=== PATIENT | male | born 1960 | race Caucasian/White ===

== ENCOUNTER 2017-07-12 15:08 | Emergency (ER) | payer OTHER, MEDICARE ==
[~2017-07-12] VITALS: Ht 185.4 cm; Wt 81.6 kg
--- NOTE | 2017-07-12 15:39 | Emergency Room Report ---
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 N Clinical Suspician of Infection? N Mental Status: 1 - Regular (Normal Baseline) Sepsis Risk:Low Sepsis Risk Have you (or family members/close friends) recently traveled outside the [place]? N If Yes, where/when: Have you had exposure to infectious disease within the past month? N TB? Other? Specify: Vivian table fell on to right third digit about five hours ago, has laceration that abuts his nail with some ecchymosis, and elevation of nail medially. No weakness or numbness. TDaP updated today. ALLERGIES Coded Allergies: No Known Allergies (05/11/17) Home Medications Active Scripts Tramadol Hcl (Ultram 50MG) 50 MG PO Q8HP PRN PAIN #6 TAB Prov: 05/11/17 Cyclobenzaprine Hcl (Flexeril) 10 MG PO TID PRN pain #30 TAB Prov: 02/13/16 INSULIN GLARGINE (Lantus 3ML Solostar Pen) 8 UNITS SC QHS #3 ML Ref 3 Prov: 08/10/13 Insulin (Insulin Human Regular 10ML) 3 UNITS SC AC #10 ML Ref 3 Prov: 08/10/13 Rifaximin (Xifaxan) 550 MG PO BID #60 TAB Ref 3 Prov: 08/10/13 Lactulose (Lactulose 20GM/30ML UD) 30 ML PO QID 30 Days Ref 3 Prov: 08/10/13 Reported Medications No Home Medications (NO HOME MEDICATIONS) 1 X * ONCE Gabapentin Enacarbil (Horizant) 900 MG PO DAILY METFORMIN HCL (Metformin) 1,000 MG PO BID History Medical History General Angina: No SD: No Hypertension? No Hyperlipidemia? No CHF? No COPD? No Asthma? No Hernia? Yes CVA? No Seizures? No Diabetes? No End Stage Renal Disease? No UTI? No Stones? No GB Disease: No Hepatitis? No Cataracts? No Glaucoma? No MRSA? No TB? No Cancer? No More? Yes Additional hx: END STAGE LIVER DISEASE Immunization Hx DT/Tetanus > 10 Years Ago Flu 08/10/13 Pneumonia 08/10/13 Surgical Hx Previous Surgery?Y L ANKLE BACK-DISC Family History Family Hx Diabetes No CAD No Hypertension No Hyperlipidemia No Cancer Yes TB No Social History Smoking Hx Smoker: Current Every Day Smoker Tobacco: Yes Type Cigarettes Packs/day 1 1/2 - 2 Packs Alcohol Alcohol: Yes Review of Systems All Other Systems Reviewed and Negative Musculoskeletal see HPI Skin see HPI Psychiatric/Neurological denies no symptoms reported Physical Exam Vital Signs Vital Signs Date Time Temp Pulse Resp B/P Pulse O2 O2 Flow FiO2 Ox Delivery Rate 07/12 1625 16 07/12 1608 98 16 112/80 98 07/12 1520 98.3 86 14 132/70 98 General Appearance normal appearance, WD/WN, no apparent distress Eye Exam - bilateral eye normal exam Respiratory Status No: respiratory distress. Cardiovascular no peripheral edema Extremities 2.0 cm jagged laceration to dorsum of right middle digit, no tendon or bone immediately visible; no debris or FB; has elevation of nail bed with drainage from it and distal ecchymosis c/w crush injury. Has good ROM with each joint held in isolation. Sensate throughout. Strong radial pulse. Neurologic alert, normal exam, no motor/sensory deficits, oriented x 3 Glascow Coma Scale Glascow Coma Scale Response Value EYE response: 4 Spontaneously 4 MOTOR response: 6 OBEYS 6 VERBAL response: 5 Oriented & Converses 5 Total 15 Skin intact (see above), laceration(s) (see above) Medical Decision Making LABS/Meds/Orders Pt receiving controlled substance in ED? No Results/Orders Current Medication Orders Sig/Abdi Start time Last Medication Dose Route Stop Time Status Admin Multi-Ingredient 0 .STK-MED ONE 07/12 1635 DC Ointment TP Ketorolac 60 MG ONCE ONE 07/12 1630 DC 07/12 Tromethamine IM 07/12 1631 1625 Lidocaine HCl 0 .STK-MED ONE 07/12 1620 DC .ROUTE Ketorolac 0 .STK-MED ONE 07/12 1619 DC Tromethamine .ROUTE Diphtheria/Pertussis/ 0 .STK-MED ONE 07/12 1532 DC Tetanus Vacc IM Diphtheria/Pertussis/ 0.5 ML ONCE ONE 07/12 1530 DC 07/12 Tetanus Vacc IM 07/12 1531 1535 Orders Procedure Date/time Status HAND-RT 3 VIEWS 07/12 1525 Active XRAY/CT/US XRAY/CT/US XR interpretation by reviewed by me Xray Results normal/NAD (oblique fx distal 3rd phalanx) Consult MD Physician Consult Consult/PCP Dr. Lyn: close and send to clinic on Keflex; [phone] Time Called 1613 Reason Orthopedic eval/care Comments Hand call paged for consult. Has open oblique fracture of distal middle phalanx. Procedures Laceration/Wound Repair Laceration/Wound Repair Risks/benefits discussed with pt/guardian? Yes Tetanus status up to date (updated in ED today) Wound Location finger(s) Wound Length (cm) 2.5 Wound's Depth, Shape sucutaneous tissue, irregular Wound Explored no FB identified (dirty nail scrubbed clean) Risk of retained FB explained to pt/guardian? Yes (no bone or tendon seen) Irrigated w/ Saline (ccs) 50 Wound Prep Hibiclens Anesthesia 1% Lidocaine Volume Anesthetic (ccs) 2 Wound Debrided none Wound Repaired With sutures Suture Size/Type 4:0, Ethilon Layer Closure No Total Number Sutures 4 Sterile Dressing Applied Yes Splint Applied Yes Type of Splint Applied foam aluminium finger splint applied by staff; n/v intact; advised risk of losing nail as tuft exposed; risk of nail deformity. Departure Departure Time of Disposition 1656 Disposition DC Home or Self Care(routine) Clinical Impression Primary Impression: Fracture metacarpal-open Qualifiers: Encounter type: initial encounter Metacarpal bone: third Metacarpal location: shaft Fracture alignment: displaced Laterality: right Qualified Code: S62.322B - Displaced fracture of shaft of third metacarpal bone, right hand, initial encounter for open fracture Condition STABLE Patient Instructions DI for a Hand Fracture, Laceration Repair Additional Instructions Wash twice daily, watch for infection, Rx Naproxen (or take Ibuprofen); Rx Keflex; follow up hand call orthopedics [phone] bring your disc with your xray on it. Sutures out in one week but you need a wound check in one to two days. Discharge Counseling Counseled pt/family regarding diagnosis, test results, medications/RX, home care, follow up needs Prescriptions Current Visit Scripts Cephalexin (Keflex 500MG) 500 MG PO Q6 #40 CAPSULE NAPROXEN (NAPROXEN 500MG TAB) 500 MG PO BID #20 TAB ED Critical Care Critical Care No at 1701
[2017-07-12 17:26] VITALS: BP 110/75
--- NOTE | 2017-07-12 17:47 | RADIOLOGY REPORT PS360 ---
HAND-RT 3 VIEWS COMPARISON: None HISTORY: Crush injury to third finger TECHNIQUE: AP lateral and oblique views FINDINGS: There is a surgical dressing about the tip of the middle finger. There is an oblique fracture through the distal phalanx and terminal tuft with one or 2 mm distraction along the fracture line. There is mild diffuse soft tissue swelling about the distal phalanx. All remaining phalanges appear intact and the carpal bones and metacarpals appear intact. There are no foreign bodies. IMPRESSION: Crush injury with fracture involving the terminal tuft and a portion of the distal phalanx middle finger.
--- OUTSIDE RECORDS SUMMARY | 2017-07-23 19:07 | External Medical Summary Rpt ---
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 Name Role Phone Jerome Ovalle MD, Unavailable Unavailable Jerome Lomeli MD, Unavailable Unavailable Jose Lomeli MD Purpose Continuity of Care Document - 08-06-2013 through 2016 Problems Code Diagnosis DOS Provider Status 79999066 Alcohol Rei abuse [facility] [id number] Diabetes Rei mellitus, [facility] onset, with hyperosmola r coma 571.2 Alcoholic Rei cirrhosis [facility] Allergies, Adverse Reactions, Alerts Type Allergy to substance Adverse Reaction to Substance Substance Reaction Severity NO KNOWN ALLERGIES Unknown Unknown Medications Na ND Rx Da Fi Fi Am Da Di Ph RX Ph St me C No te ll ll ou ys ag ar # ys at rm s nt no ma ic us Or Da si cy ia de te s n re d [place] 00 10 0 No lo 06 -2 pe 90 9- Lo ri 11 20 ng do 30 13 er l [address] ti at ve e 5M G/ Ml Vi a WV 10 0 No SC -2 EL 9- Lo LA 20 ng NE 13 er OU S Ac ti ve PN 00 10 0 No EU 00 -2 MO 64 9- Lo VA 94 20 ng X 30 13 er 23 0 Ac ti AL ve IN 49 10 0 No FL 28 -2 UE 10 9- Lo NZ 39 20 ng A 21 13 er 5 RU Ac S ti VA ve CC IN E 0. 5M L LO 00 10 0 No RA 64 -2 ZE 16 8- Lo PA 04 20 ng M 82 13 er 2 5 MG Ac /M ti L ve AL [place] 00 10 0 No lo 06 -2 pe 90 8- Lo ri 11 20 ng do 30 13 er l [address] ti at ve e 5M G/ Ml Vi a LA 00 10 1 No NT 08 -2 US 82 8- Lo 21 20 ng SO [address] Ac AR ti ve 10 0 UN IT /M L HU 00 10 1 No MA 00 -2 LO 27 8- Lo G 51 20 ng 10 01 13 er 0 7 UN Ac IT ti S/ ve ML AL FS 10 1 No -2 BL 8- Lo OO 20 ng D 13 er MARSH GA Ac R ti ve Lo 63 10 1 No ra 73 -2 ze 90 8- Lo pa 15 20 ng m 51 13 er 1M 0 G Ac Ta ti bl ve et PO 00 10 2 No TA 40 -2 SS 99 7- Lo IU 25 20 ng M 73 13 er CL 9 Ac 20 ti ve ME Q- 0. 45 % NA CL ROSAS 51 10 2 No LO 07 -2 PE 90 7- Lo RI 73 20 ng DO 42 13 er L 0 1 Ac MG ti ve TA BL ET LO 00 10 2 No VE 07 -2 NO 50 7- Lo X 62 20 ng 40 04 13 er 1 MG Ac /0 ti .4 ve ML SY RI NG E NI 00 10 2 No CO 06 -2 TI 75 7- Lo NE 12 20 ng 61 13 er 21 4 Ac MG ti /2 ve 4H R PA TC H LA [address] 12 -2 UL 14 7- Lo OS 57 20 ng E 73 13 er 20 0 Ac GM ti /3 ve 0 ML SO SEAN TI ON FS 10 0 No -2 BL 6- Lo OO 20 ng D 13 er MARSH GA Ac R ti ve HU 00 10 0 No MA 00 -2 LO 27 6- Lo G 51 20 ng 10 01 13 er 0 7 UN Ac IT ti S/ ve ML AL RA 00 10 0 No D- 27 -2 IS 01 6- Lo OV 31 20 ng UE 63 13 er -3 5A 70 Ac ; ti 10 ve 0M L LO 00 10 3 No RA 64 -2 ZE 16 6- Lo PA 04 20 ng M 82 13 er 2 5 MG Ac /M ti L ve AL PO 00 10 1 No TA 40 -2 SS 99 6- Lo IU 25 20 ng M 73 13 er CL 9 Ac 20 ti ve ME Q- 0. 45 % NA CL SO 00 10 1 No DI 40 -2 UM 97 6- Lo 98 20 ng CH 50 13 er LO 9 RI Ac DE ti ve 0. 45 % SO LN SO 00 10 0 No DI 40 -2 UM 97 5- Lo 98 20 ng CH 30 13 er LO 9 RI Ac DE ti ve 0. 9% SO SEAN TI ON NO 00 10 1 No VO 16 -2 LI 91 5- Lo N 83 20 ng R 31 13 er 10 1 0 Ac UN ti IT ve S/ ML AL PO 00 10 1 No TA 40 -2 SS 99 5- Lo IU 25 20 ng M 73 13 er CL 9 Ac 20 ti ve ME Q- 0. 45 % NA CL ON 00 10 1 No DA 64 -2 NS 16 5- Lo ET 08 20 ng RO 02 13 er N 5 HC Ac L ti 4 ve MG /2 ML AL FS 10 1 No -2 BL 5- Lo OO 20 ng D 13 er MARSH GA Ac R ti ve NI 00 10 1 No CO 06 -2 TI 75 5- Lo NE 12 20 ng 61 13 er 21 4 Ac MG ti /2 ve 4H R PA TC H LO 00 10 1 No VE 07 -2 NO 50 5- Lo X 62 20 ng 40 04 13 er 1 MG Ac /0 ti .4 ve ML SY RI NG E LO 00 10 1 No RA 64 -2 ZE 16 5- Lo PA 04 20 ng M 82 13 er 2 5 MG Ac /M ti L ve AL Vital Signs 08-10-2013 16:48 Name Value Interpretat Reference Comment ion Range Body 98.2 [degF] Temperature BP 76 mm[Hg] Diastolic BP Systolic 105 mm[Hg] Heart 84 /min Rate/Pulse Respiratory 18 /min Rate 08-10-2013 15:50 Name Value Interpretat Reference Comment ion Range O2% 97 % 08-06-2013 12:00 Name Value Interpretat Reference Comment ion Range Height 185.42 cm Weight 64.212 kg Measured 08-06-2013 09:26 Name Value Interpretat Reference Comment ion Range Body 97.8 [degF] Temperature BP 63 mm[Hg] Diastolic BP Systolic 117 mm[Hg] Heart 83 /min Rate/Pulse O2% 91 % Respiratory 20 /min Rate Weight 4 [oz_av] Measured Results Labs Lab Lab Date Result Refere Interp Status Commen Order Detail nces retati t Range on Glucose BldC [facility]com[facility] (08-10-2013 16:22) Glucose 133 70-110 complet BldC 013 mg/dl ed Glucomt 16:22 r-mCnc Glucose BldC Glucomtr-[facility] (08-10-2013 10:59) Glucose 142 70-110 complet BldC 013 mg/dl ed Glucomt 10:59 r-[facility] COMPREHENSIVE METABOLIC PANEL (08-10-2013 06:40) Glucose 177 74-106 complet 013 mg/dL ed Bld-mCn 06:40 c BUN 6 mg/dL 7-18 complet Bld-mCn 013 ed c 06:40 Creat 0.8 0.8-1.3 complet SerPl-m 013 mg/dL ed Cnc 06:40 ESTIMAT 98 50-200 complet ED 013 ML/MIN ed CREATIN 06:40 INE CLEARAN CE GFR 101 Greater complet (ESTIMA 013 ML/MIN than ed AMANDA) 06:40 60 Sodium 147 136-145 complet SerPl-s 013 mmoL/L ed Cnc 06:40 Potassi 3.7 3.5-5.1 complet um 013 mmoL/L ed SerPl-s 06:40 Cnc Chlorid 115 98-107 complet e 013 mmoL/L ed SerPl-s 06:40 Cnc CO2 23 21.0-32 complet SerPl-s 013 mmoL/L .0 ed Cnc 06:40 Calcium 8.6 8.5-10. complet 013 mg/dL 1 ed SerPl-m 06:40 Cnc Prot 5.1 6.4-8.2 complet SerPl-m 013 gm/dL ed Cnc 06:40 Albumin 2.2 3.4-5.0 complet 013 gm/dL ed SerPl-m 06:40 Cnc Globuli 2.9 1.3-3.2 complet n 013 gm/dL ed Ser-mCn 06:40 c Albumin 0.8 UNK 1.1-1.8 complet /Glob 013 ed SerPl-m 06:40 Rto Bilirub 0.8 0.2-1.0 complet 013 mg/dL ed SerPl-m 06:40 Cnc AST 143 U/L 15-37 complet SerPl-c 013 ed Cnc 06:40 ALT 10-29-2 122 U/L 30-65 complet SerPl-c 013 ed Cnc 06:40 ALP 08-10-2 394 U/L 50-136 complet SerPl-c 013 ed Cnc 06:40 CBC with AUTO DIFF (08-10-2013 06:40) WBC # 10-29-2 3.6 4.8-10. complet Bld 013 K/MM3 8 ed Auto 06:40 RBC # 29-2 3.96 4.6-6.2 complet Bld 013 M/mm3 ed Auto 06:40 Hgb 08-10-2 13.6 14.1-18 complet Bld-mCn 013 g/dL .0 ed c 06:40 Hct Fr 08-10-2 42.9 % 42.0-52 complet Bld 013 .0 ed 06:40 MCV RBC 08-10-2 108.2 82.2-97 complet 013 fl .8 ed 06:40 MCH RBC 08-10-2 34.3 pg 27-31.2 complet Qn 013 ed Auto 06:40 MEAN 08-10-2 31.7 31.8-35 complet CORPUSC 013 g/dl .4 ed ULAR 06:40 HGB CONC RDW RBC 08-10-2 15.5 % 11.5-17 complet Auto 013 .5 ed 06:40 Platele 08-10-2 44 142-424 Low complet t Bld 013 K/mm3 alert ed Ql 06:40 Manual MEAN 08-10-2 10.3 fl 7.4-10. complet PLATELE 013 4 ed T 06:40 VOLUME Granulo 08-10-2 67.4 % 37.0-80 complet cytes 013 .0 ed Fr Bld 06:40 Auto LYMPH % 08-10-2 27.6 % 10-50 complet 013 ed 06:40 Monocyt 10--2 3.8 % 1.7-9.3 complet es Fr 013 ed Bld 06:40 Auto Eosinop --2 1.0 % 0.1-12. complet hil Fr 013 0 ed Bld 06:40 Auto Basophi 08-10-2 0.2 % 0.1-2.0 complet ls Fr 013 ed Bld 06:40 Auto Granulo --2 2.4 1.3-8.0 complet cytes # 013 K/mm3 ed Bld 06:40 Auto Lymphoc 1.0 0.7-4.5 complet ytes Fr 013 K/mm3 ed Bld 06:40 Auto Monocyt 0.1 0.1-1.0 complet es # 013 K/mm3 ed Bld 06:40 Auto Eosinop 0.0 0.0-0.4 complet hil # 013 K/mm3 ed Bld 06:40 Auto Basophi 0.0 0-0.2 complet ls # 013 K/MM3 ed Bld 06:40 Auto Glucose BldC [facility] (08-10-2013 06:37) Glucose 169 70-110 complet BldC 013 mg/dl ed Glucomt 06:37 r-nc Glucose BldC [facility] (08-09-2013 21:13) Glucose 75 70-110 complet BldC 013 mg/dl ed Glucomt 21:13 r-[facility] Glucose BldC [facility] (08-09-2013 17:18) Glucose 104 70-110 complet BldC 013 mg/dl ed Glucomt 17:18 r-[facility] BASIC METABOLIC PANEL (08-09-2013 16:00) Glucose 79 74-106 complet 013 mg/dL ed Bld-mCn 16:00 c BUN 7 mg/dL 7-18 complet Bld-mCn 013 ed c 16:00 Creat 0.8 0.8-1.3 complet SerPl-m 013 mg/dL ed Cnc 16:00 ESTIMAT 98 50-200 complet ED 013 ML/MIN ed CREATIN 16:00 INE CLEARAN CE GFR 101 Greater complet (ESTIMA 013 ML/MIN than ed AMANDA) 16:00 60 Sodium 153 136-145 High complet SerPl-s 013 mmoL/L alert ed Cnc 16:00 Potassi 3.3 3.5-5.1 complet um 013 mmoL/L ed SerPl-s 16:00 Cnc Chlorid 118 98-107 complet e 013 mmoL/L ed SerPl-s 16:00 Cnc CO2 21 21.0-32 complet SerPl-s 013 mmoL/L .0 ed Cnc 16:00 Calcium 8.7 8.5-10. complet 013 mg/dL 1 ed SerPl-m 16:00 Cnc CBC with AUTO DIFF (08-09-2013 16:00) WBC # 08-09-2 4.1 4.8-10. complet Bld 013 K/MM3 8 ed Auto 16:00 RBC # 08-09-2 4.09 4.6-6.2 complet Bld 013 M/mm3 ed Auto 16:00 Hgb 13.9 14.1-18 complet Bld-mCn 013 g/dL .0 ed c 16:00 Hct Fr 43.4 % 42.0-52 complet Bld 013 .0 ed 16:00 MCV RBC 106.1 82.2-97 complet 013 fl .8 ed 16:00 MCH RBC 34.1 pg 27-31.2 complet Qn 013 ed Auto 16:00 MEAN 32.1 31.8-35 complet CORPUSC 013 g/dl .4 ed ULAR 16:00 HGB CONC RDW RBC 15.6 % 11.5-17 complet Auto 013 .5 ed 16:00 Platele 43 142-424 Low complet t Bld 013 K/mm3 alert ed Ql 16:00 Manual MEAN 10.2 fl 7.4-10. complet PLATELE 013 4 ed T 16:00 VOLUME Granulo 63.8 % 37.0-80 complet cytes 013 .0 ed Fr Bld 16:00 Auto LYMPH % 08-09-2 30.9 % 10-50 complet 013 ed 16:00 Monocyt 08-09-2 3.2 % 1.7-9.3 complet es Fr 013 ed Bld 16:00 Auto Eosinop 08-09-2 1.8 % 0.1-12. complet hil Fr 013 0 ed Bld 16:00 Auto Basophi 08-09-2 0.2 % 0.1-2.0 complet ls Fr 013 ed Bld 16:00 Auto Granulo 08-09-2 2.6 1.3-8.0 complet cytes # 013 K/mm3 ed Bld 16:00 Auto Lymphoc 1.3 0.7-4.5 complet ytes Fr 013 K/mm3 ed Bld 16:00 Auto Monocyt 0.1 0.1-1.0 complet es # 013 K/mm3 ed Bld 16:00 Auto Eosinop 0.1 0.0-0.4 complet hil # 013 K/mm3 ed Bld 16:00 Auto Basophi 0.0 0-0.2 complet ls # 013 K/MM3 ed Bld 16:00 Auto Glucose BldC [facility] (08-09-2013 12:49) Glucose 148 70-110 complet BldC 013 mg/dl ed Glucomt 12:49 r-[facility] Glucose dC [facility]tr-[facility] (08-09-2013 11:54) Glucose 156 70-110 complet BldC 013 mg/dl ed Glucomt 11:54 r-[facility] Glucose BldC [facility] (08-09-2013 06:40) Glucose 263 70-110 complet BldC 013 mg/dl ed Glucomt 06:40 r-[facility] BASIC METABOLIC PANEL (08-09-2013 06:20) Glucose 266 74-106 complet 013 mg/dL ed Bld-mCn 06:20 c BUN 8 mg/dL 7-18 complet Bld-mCn 013 ed c 06:20 Creat 0.8 0.8-1.3 complet SerPl-m 013 mg/dL ed Cnc 06:20 ESTIMAT 98 50-200 complet ED 013 ML/MIN ed CREATIN 06:20 INE CLEARAN CE GFR 101 Greater complet (ESTIMA 013 ML/MIN than ed AMANDA) 06:20 60 Sodium 147 136-145 complet SerPl-s 013 mmoL/L ed Cnc 06:20 Potassi 3.6 3.5-5.1 complet um 013 mmoL/L ed SerPl-s 06:20 Cnc Chlorid 114 98-107 complet e 013 mmoL/L ed SerPl-s 06:20 Cnc CO2 08-09- 23 21.0-32 complet SerPl-s 013 mmoL/L .0 ed Cnc 06:20 Calcium 08-09-2 8.1 8.5-10. complet 013 mg/dL 1 ed SerPl-m 06:20 Cnc LIVER PROFILE (08-09-2013 06:20) Prot 08-09-2 4.7 6.4-8.2 complet SerPl-m 013 gm/dL ed Cnc 06:20 Albumin 2 2.2 3.4-5.0 complet 013 gm/dL ed SerPl-m 06:20 Cnc Bilirub 08-09-2 0.9 0.2-1.0 complet 013 mg/dL ed SerPl-m 06:20 Cnc Bilirub 0.46 0.0-0.2 complet Direct 013 mg/dL ed 06:20 SerPl-m Cnc Bilirub 08-09-2 0.44 0-0.9 complet 013 mg/dL ed Indirec 06:20 t SerPl-m Cnc AST 119 U/L 15-37 complet SerPl-c 013 ed Cnc 06:20 ALT 116 U/L 30-65 complet SerPl-c 013 ed Cnc 06:20 ALP 331 U/L 50-136 complet SerPl-c 013 ed Cnc 06:20 Amylase SerPl-cCnc (08-09-2013 06:20) Amylase 22 U/L 25-115 complet 013 ed SerPl-c 06:20 Cnc PROTIME/INR (08-09-2013 06:20) PROTHRO 08-09-2 16.8 9.9-11. complet MBIN 013 SECONDS 6 ed TIME 06:20 INR Bld 08-09-2 1.56 0.9-1.1 complet 013 UNK ed 06:20 CBC with AUTO DIFF (08-09-2013 06:20) WBC # 08-09-2 3.8 4.8-10. complet Bld 013 K/MM3 8 ed Auto 06:20 RBC # 08-09-2 3.91 4.6-6.2 complet Bld 013 M/mm3 ed Auto 06:20 Hgb 08-09-2 13.4 14.1-18 complet Bld-mCn 013 g/dL .0 ed c 06:20 Hct Fr 2 42.8 % 42.0-52 complet Bld 013 .0 ed 06:20 MCV RBC 08-09-2 109.4 82.2-97 complet 013 fl .8 ed 06:20 MCH RBC 08-09- 34.2 pg 27-31.2 complet Qn 013 ed Auto 06:20 MEAN 08-09- 31.2 31.8-35 complet CORPUSC 013 g/dl .4 ed ULAR 06:20 HGB CONC RDW RBC 2 15.9 % 11.5-17 complet Auto 013 .5 ed 06:20 Platele 08-09-2 39 142-424 complet t Bld 013 K/mm3 ed Ql 06:20 Manual MEAN 2 10.3 fl 7.4-10. complet PLATELE 013 4 ed T 06:20 VOLUME Granulo 08-09-2 74.4 % 37.0-80 complet cytes 013 .0 ed Fr Bld 06:20 Auto LYMPH % --2 20.1 % 10-50 complet 013 ed 06:20 Monocyt 10-2 3.6 % 1.7-9.3 complet es Fr 013 ed Bld 06:20 Auto Eosinop -28-2 1.7 % 0.1-12. complet hil Fr 013 0 ed Bld 06:20 Auto Basophi -28-2 0.1 % 0.1-2.0 complet ls Fr 013 ed Bld 06:20 Auto Granulo 10-28-2 2.8 1.3-8.0 complet cytes # 013 K/mm3 ed Bld 06:20 Auto Lymphoc 10-28-2 0.8 0.7-4.5 complet ytes Fr 013 K/mm3 ed Bld 06:20 Auto Monocyt 10-28-2 0.1 0.1-1.0 complet es # 013 K/mm3 ed Bld 06:20 Auto Eosinop 10-28-2 0.1 0.0-0.4 complet hil # 013 K/mm3 ed Bld 06:20 Auto Basophi -28-2 0.0 0-0.2 complet ls # 013 K/MM3 ed Bld 06:20 Auto Glucose BldC Glucomtr-mCnc (08-08-2013 21:07) Glucose 76 70-110 complet BldC 013 mg/dl ed Glucomt 21:07 r-[facility] BASIC METABOLIC PANEL (08-08-2013 17:52) Glucose 158 74-106 complet 013 mg/dL ed Bld-mCn 17:52 c BUN 9 mg/dL 7-18 complet Bld-mCn 013 ed c 17:52 Creat 1.0 0.8-1.3 complet SerPl-m 013 mg/dL ed Cnc 17:52 ESTIMAT 78 50-200 complet ED 013 ML/MIN ed CREATIN 17:52 INE CLEARAN CE GFR 78 Greater complet (ESTIMA 013 ML/MIN than ed AMANDA) 17:52 60 Sodium 149 136-145 complet SerPl-s 013 mmoL/L ed Cnc 17:52 Potassi 3.0 3.5-5.1 complet um 013 mmoL/L ed SerPl-s 17:52 Cnc Chlorid 115 98-107 complet e 013 mmoL/L ed SerPl-s 17:52 Cnc CO2 25 21.0-32 complet SerPl-s 013 mmoL/L .0 ed Cnc 17:52 Calcium 8.6 8.5-10. complet 013 mg/dL 1 ed SerPl-m 17:52 Cnc Glucose [facility] Glucomtr-[facility] (08-08-2013 16:08) Glucose 355 70-110 High complet BldC 013 mg/dl alert ed Glucomt 16:08 r-[facility] Glucose [facility] Glucomtr-[facility] (08-08-2013 11:14) Glucose 283 70-110 complet BldC 013 mg/dl ed Glucomt 11:14 r-[facility] Phosphate SerPl-[facility] (08-08-2013 08:30) Phospha 1.8 2.4-4.9 complet te 013 mg/dL ed SerPl-m 08:30 Cnc Magnesium SerP-[facility] (08-08-2013 08:30) Magnesi 1.6 1.4-2.2 complet um 013 mg/dL ed SerPl-m 08:30 Cnc Amylase SerPl-cCnc (08-08-2013 08:30) Amylase 26 U/L 25-115 complet 013 ed SerPl-c 08:30 Cnc BASIC METABOLIC PANEL (08-08-2013 08:30) Glucose 261 74-106 complet 013 mg/dL ed Bld-mCn 08:30 c BUN 14 7-18 complet Bld-mCn 013 mg/dL ed c 08:30 Creat 1.1 0.8-1.3 complet SerPl-m 013 mg/dL ed Cnc 08:30 ESTIMAT 71 50-200 complet ED 013 ML/MIN ed CREATIN 08:30 INE CLEARAN CE GFR 70 Greater complet (ESTIMA 013 ML/MIN than ed AMANDA) 08:30 60 Sodium 154 136-145 High complet SerPl-s 013 mmoL/L alert ed Cnc 08:30 Potassi 3.7 3.5-5.1 complet um 013 mmoL/L ed SerPl-s 08:30 Cnc Chlorid 119 98-107 complet e 013 mmoL/L ed SerPl-s 08:30 Cnc CO2 25 21.0-32 complet SerPl-s 013 mmoL/L .0 ed Cnc 08:30 Calcium 08-08- 8.8 8.5-10. complet 013 mg/dL 1 ed SerPl-m 08:30 [facility] LIVER PROFILE (08-08-2013 08:30) Prot 08-08-2 5.3 6.4-8.2 complet SerPl-m 013 gm/dL ed Cnc 08:30 Albumin 08-08-2 2.4 3.4-5.0 complet 013 gm/dL ed SerPl-m 08:30 Cnc Bilirub 08-08-2 0.7 0.2-1.0 complet 013 mg/dL ed SerPl-m 08:30 Cnc Bilirub 08-08-2 0.41 0.0-0.2 complet Direct 013 mg/dL ed 08:30 SerPl-m Cnc Bilirub 08-08-2 0.29 0-0.9 complet 013 mg/dL ed Indirec 08:30 t SerPl-m Cnc AST 10-27-2 163 U/L 15-37 complet SerPl-c 013 ed Cnc 08:30 ALT 10-27-2 147 U/L 30-65 complet SerPl-c 013 ed Cnc 08:30 ALP 10-27-2 363 U/L 50-136 complet SerPl-c 013 ed Cnc 08:30 ACETONE, SERUM (08-08-2013 08:30) ACETONE 10-2 DETECTE NOT complet , SERUM 013 D DETECTD ed 08:30 CBC with AUTO DIFF (08-08-2013 08:30) WBC # 10-27-2 5.6 4.8-10. complet Bld 013 K/MM3 8 ed Auto 08:30 RBC # 10-27-2 4.03 4.6-6.2 complet Bld 013 M/mm3 ed Auto 08:30 Hgb 10-27-2 13.8 14.1-18 complet Bld-mCn 013 g/dL .0 ed c 08:30 Hct Fr 10-2 45.1 % 42.0-52 complet Bld 013 .0 ed 08:30 MCV RBC 10-27-2 111.9 82.2-97 complet 013 fl .8 ed 08:30 MCH RBC 10-27-2 34.2 pg 27-31.2 complet Qn 013 ed Auto 08:30 MEAN 10-27-2 30.5 31.8-35 complet CORPUSC 013 g/dl .4 ed ULAR 08:30 HGB CONC RDW RBC 10-27-2 15.9 % 11.5-17 complet Auto 013 .5 ed 08:30 Platele 10-27-2 55 142-424 complet t Bld 013 K/mm3 ed Ql 08:30 Manual MEAN 10-27-2 10.1 fl 7.4-10. complet PLATELE 013 4 ed T 08:30 VOLUME Granulo 10-27-2 75.4 % 37.0-80 complet cytes 013 .0 ed Fr Bld 08:30 Auto LYMPH % 10-27-2 19.0 % 10-50 complet 013 ed 08:30 Monocyt 10-27-2 3.3 % 1.7-9.3 complet es Fr 013 ed Bld 08:30 Auto Eosinop 10-27-2 2.2 % 0.1-12. complet hil Fr 013 0 ed Bld 08:30 Auto Basophi 10-2 0.1 % 0.1-2.0 complet ls Fr 013 ed Bld 08:30 Auto Granulo 10-2 4.2 1.3-8.0 complet cytes # 013 K/mm3 ed Bld 08:30 Auto Lymphoc 10--2 1.1 0.7-4.5 complet ytes Fr 013 K/mm3 ed Bld 08:30 Auto Monocyt 1027-2 0.2 0.1-1.0 complet es # 013 K/mm3 ed Bld 08:30 Auto Eosinop 27-2 0.1 0.0-0.4 complet hil # 013 K/mm3 ed Bld 08:30 Auto Basophi 10-2 0.0 0-0.2 complet ls # 013 K/MM3 ed Bld 08:30 Auto Glucose BldC [facility]comtr[facility] (08-08-2013 06:27) Glucose 08-08- 273 70-110 complet BldC 013 mg/dl ed Glucomt 06:27 r-[facility] Glucose BldC [facility]tr-[facility] (08-07-2013 20:43) Glucose 08-07-2 196 70-110 complet BldC 013 mg/dl ed Glucomt 20:43 r-[facility] BASIC METABOLIC PANEL (08-07-2013 17:55) Glucose 08-07- 175 74-106 complet 013 mg/dL ed Bld-mCn 17:55 c BUN 19 7-18 complet Bld-mCn 013 mg/dL ed c 17:55 Creat 0.9 0.8-1.3 complet SerPl-m 013 mg/dL ed Cnc 17:55 ESTIMAT 87 50-200 complet ED 013 ML/MIN ed CREATIN 17:55 INE CLEARAN CE GFR 88 Greater complet (ESTIMA 013 ML/MIN than ed AMANDA) 17:55 60 Sodium 161 136-145 High complet SerPl-s 013 mmoL/L alert ed Cnc 17:55 Potassi 3.2 3.5-5.1 complet um 013 mmoL/L ed SerPl-s 17:55 Cnc Chlorid 1026-2 125 98-107 complet e 013 mmoL/L ed SerPl-s 17:55 Cnc CO2 26 21.0-32 complet SerPl-s 013 mmoL/L .0 ed Cnc 17:55 Calcium 8.8 8.5-10. complet 013 mg/dL 1 ed SerPl-m 17:55 Cnc Phosphate SerPl-mCnc (08-07-2013 17:55) Phospha 1.4 2.4-4.9 complet te 013 mg/dL ed SerPl-m 17:55 Cnc Magnesium SerPl-[facility] (08-07-2013 17:55) Magnesi 1.8 1.4-2.2 complet um 013 mg/dL ed SerPl-m 17:55 Cnc ACETONE, SERUM (08-07-2013 17:55) ACETONE NONE NOT complet , SERUM 013 DETECTE DETECTD ed 17:55 D Glucose BldC Glucomtr-[facility] (08-07-2013 16:40) Glucose 162 70-110 complet BldC 013 mg/dl ed Glucomt 16:40 r-[facility] LIVER PROFILE (08-07-2013 15:45) Prot 5.5 6.4-8.2 complet SerPl-m 013 gm/dL ed Cnc 15:45 Albumin 2.4 3.4-5.0 complet 013 gm/dL ed SerPl-m 15:45 Cnc Bilirub 0.5 0.2-1.0 complet 013 mg/dL ed SerPl-m 15:45 Cnc Bilirub 0.37 0.0-0.2 complet Direct 013 mg/dL ed 15:45 SerPl-m Cnc Bilirub 0.13 0-0.9 complet 013 mg/dL ed Indirec 15:45 t SerPl-m Cnc AST 191 U/L 15-37 complet SerPl-c 013 ed Cnc 15:45 ALT 146 U/L 30-65 complet SerPl-c 013 ed Cnc 15:45 ALP 351 U/L 50-136 complet SerPl-c 013 ed Cnc 15:45 PROTIME/INR (08-07-2013 15:45) PROTHRO 15.6 9.9-11. complet MBIN 013 SECONDS 6 ed TIME 15:45 INR Bld 1.45 0.9-1.1 complet 013 UNK ed 15:45 Ammonia Plas-sCnc (08-07-2013 15:45) Ammonia 31 11-32 complet 013 umoL/L ed Plas-sC 15:45 nc Glucose BldC Glucomtr-mCnc (08-07-2013 12:04) Glucose 262 70-110 complet BldC 013 mg/dl ed Glucomt 12:04 r-[facility] Glucose BldC Glucomtr-nc (08-07-2013 06:55) Glucose 78 70-110 complet BldC 013 mg/dl ed Glucomt 06:55 r-[facility] Glucose BldC Glucomtr-nc (08-07-2013 06:02) Glucose 123 70-110 complet BldC 013 mg/dl ed Glucomt 06:02 r-[facility] BASIC METABOLIC PANEL (08-07-2013 06:00) Glucose 126 74-106 complet 013 mg/dL ed Bld-mCn 06:00 c BUN 27 7-18 complet Bld-mCn 013 mg/dL ed c 06:00 Creat 1.1 0.8-1.3 complet SerPl-m 013 mg/dL ed Cnc 06:00 ESTIMAT 71 50-200 complet ED 013 ML/MIN ed CREATIN 06:00 INE CLEARAN CE GFR 70 Greater complet (ESTIMA 013 ML/MIN than ed AMANDA) 06:00 60 Sodium 164 136-145 High complet SerPl-s 013 mmoL/L alert ed Cnc 06:00 Potassi 4.6 3.5-5.1 complet um 013 mmoL/L ed SerPl-s 06:00 Cnc Chlorid 127 98-107 complet e 013 mmoL/L ed SerPl-s 06:00 Cnc CO2 24 21.0-32 complet SerPl-s 013 mmoL/L .0 ed Cnc 06:00 Calcium 9.1 8.5-10. complet 013 mg/dL 1 ed SerPl-m 06:00 Cnc Phosphate SerPl-nc (08-07-2013 06:00) Phospha 1.3 2.4-4.9 complet te 013 mg/dL ed SerPl-m 06:00 Cnc Magnesium SerPl-[facility] (08-07-2013 06:00) Magnesi 1.9 1.4-2.2 complet um 013 mg/dL ed SerPl-m 06:00 Cnc ACETONE, SERUM (08-07-2013 06:00) ACETONE NONE NOT complet , SERUM 013 DETECTE DETECTD ed 06:00 D Glucose BldC Glucomtr-[facility] (08-07-2013 04:30) Glucose 110 70-110 complet BldC 013 mg/dl ed Glucomt 04:30 r-[facility] Glucose BldC Glucomtr-[facility] (08-07-2013 03:02) Glucose 181 70-110 complet BldC 013 mg/dl ed Glucomt 03:02 r-[facility] Glucose BldC Glucomtr-[facility] (08-07-2013 01:01) Glucose 172 70-110 complet BldC 013 mg/dl ed Glucomt 01:01 r-[facility] Glucose BldC Glucomtr-[facility] (08-07-2013 00:05) Glucose 206 70-110 complet BldC 013 mg/dl ed Glucomt 00:05 r-[facility] Glucose BldC Glucomtr-[facility] (08-06-2013 22:07) Glucose 207 70-110 complet BldC 013 mg/dl ed Glucomt 22:07 r-[facility] BASIC METABOLIC PANEL (08-06-2013 22:00) Glucose 236 74-106 complet 013 mg/dL ed Bld-mCn 22:00 c BUN 27 7-18 complet Bld-mCn 013 mg/dL ed c 22:00 Creat 1.4 0.8-1.3 complet SerPl-m 013 mg/dL ed Cnc 22:00 Creat 55 50-200 complet Cl 013 ML/MIN ed predict 22:00 ed SerPl C-G-vRa te GFR/BSA 53 Greater complet .pred 013 ML/MIN than ed SerPl 22:00 60 Schwart z-vRate Sodium 165 136-145 High complet SerPl-s 013 mmoL/L alert ed Cnc 22:00 Potassi 3.3 3.5-5.1 complet um 013 mmoL/L ed SerPl-s 22:00 Cnc Chlorid 116 98-107 complet e 013 mmoL/L ed SerPl-s 22:00 Cnc CO2 31 21.0-32 complet SerPl-s 013 mmoL/L .0 ed Cnc 22:00 Calcium 9.3 8.5-10. complet 013 mg/dL 1 ed SerPl-m 22:00 Cnc Phosphate SerPl-[facility] (08-06-2013 22:00) Phospha 1.8 2.4-4.9 complet te 013 mg/dL ed SerPl-m 22:00 Cnc Magnesium SerPl-[facility] (08-06-2013 22:00) Magnesi 2.1 1.4-2.2 complet um 013 mg/dL ed SerPl-m 22:00 [facility] Glucose [facility] Glucomtr-[facility] (08-06-2013 21:36) Glucose 272 70-110 complet BldC 013 mg/dl [facility] (08-06-2013 20:14) Glucose 257 70-110 complet BldC 013 mg/dl [facility] (08-06-2013 19:23) Glucose 315 74-106 complet 013 mg/dL ed Bld-mCn 19:23 c BUN 27 7-18 complet Bld-mCn 013 mg/dL ed c 19:23 Creat 1.4 0.8-1.3 complet SerPl-m 013 mg/dL ed Cnc 19:23 ESTIMAT 10-25-2 55 50-200 complet ED 013 ML/MIN ed CREATIN 19:23 INE CLEARAN CE GFR 53 Greater complet (ESTIMA 013 ML/MIN than ed AMANDA) 19:23 60 Sodium 165 136-145 High complet SerPl-s 013 mmoL/L alert ed Cnc 19:23 Potassi 3.0 3.5-5.1 complet um 013 mmoL/L ed SerPl-s 19:23 Cnc Chlorid 126 98-107 complet e 013 mmoL/L ed SerPl-s 19:23 Cnc CO2 31 21.0-32 complet SerPl-s 013 mmoL/L .0 ed Cnc 19:23 Calcium 9.1 8.5-10. complet 013 mg/dL 1 ed SerPl-m 19:23 Cnc Glucose BldC Glucomtr-mCnc (08-06-2013 19:06) Glucose 290 70-110 complet BldC 013 mg/dl ed Glucomt 19:06 r-[facility] Glucose BldC Glucomtr-nc (08-06-2013 18:22) Glucose 326 70-110 High complet BldC 013 mg/dl alert ed Glucomt 18:22 r-[facility] Glucose BldC Glucomtr-nc (08-06-2013 17:08) Glucose 360 70-110 High complet BldC 013 mg/dl alert ed Glucomt 17:08 r-[facility] Glucose BldC Glucomtr-nc (08-06-2013 16:28) Glucose 389 70-110 High complet BldC 013 mg/dl alert ed Glucomt 16:28 r-mCnc Glucose BldC Glucomtr-mCnc (08-06-2013 15:04) Glucose Greater 70-110 High complet BldC 013 than alert ed Glucomt 15:04 550 r-mCnc mg/dl BASIC METABOLIC PANEL (08-06-2013 15:00) Glucose 539 74-106 High complet 013 mg/dL alert ed Bld-mCn 15:00 c BUN 28 7-18 complet Bld-mCn 013 mg/dL ed c 15:00 Creat 1.4 0.8-1.3 complet SerPl-m 013 mg/dL ed Cnc 15:00 ESTIMAT 55 50-200 complet ED 013 ML/MIN ed CREATIN 15:00 INE CLEARAN CE GFR 53 Greater complet (ESTIMA 013 ML/MIN than ed AMANDA) 15:00 60 Sodium 163 136-145 High complet SerPl-s 013 mmoL/L alert ed Cnc 15:00 Potassi 3.3 3.5-5.1 complet um 013 mmoL/L ed SerPl-s 15:00 Cnc Chlorid 122 98-107 complet e 013 mmoL/L ed SerPl-s 15:00 Cnc CO2 30 21.0-32 complet SerPl-s 013 mmoL/L .0 ed Cnc 15:00 Calcium 9.5 8.5-10. complet 013 mg/dL 1 ed SerPl-m 15:00 Cnc ACETONE, SERUM (08-06-2013 15:00) ACETONE DETECTE NOT complet , SERUM 013 D DETECTD ed 15:00 Glucose BldC [facility] (08-06-2013 14:04) Glucose Greater 70-110 High complet BldC 013 than alert ed Glucomt 14:04 550 r-mCnc mg/dl Glucose Bld-nc (08-06-2013 12:45) Glucose 747 74-106 High complet 013 mg/dL alert ed Bld-mCn 12:45 c Glucose BldC Glucomtr-nc (08-06-2013 12:31) Glucose Greater 70-110 High complet BldC 013 than alert ed Glucomt 12:31 550 r-mCnc mg/dl URINALYSIS/COMPLETE (08-06-2013 12:15) URINE YELLOW YELLOW complet COLOR 013 ed 12:15 URINE CLEAR CLEAR complet APPEARA 013 ed NCE 12:15 URINE 3+ NEG complet GLUCOSE 013 ed - 12:15 DIPSTIC K URINE NEGATIV NEG complet BILIRUB 013 E ed IN - 12:15 DIPSTIC K URINE 10-25-2 1+ NEG complet KETONE 013 mg/dL ed 12:15 URINE 08-06-2 Less 1.005-1 complet SPECIFI 013 than or .030 ed C 12:15 equal GRAVITY to 1.005 URINE 2 NEGATIV NEG complet BLOOD 013 E ed 12:15 URINE 08-06-2 5.5 UNK 5.0-8.5 complet PH 013 ed 12:15 URINE NEGATIV NEG complet PROTEIN 013 E mg/dL ed - 12:15 DIPSTIC K URINE 08-06-2 0.2 NEG complet UROBILI 013 E.U./dL ed NOGEN - 12:15 DIPSTIC K URINE 2 NEGATIV NEG complet NITRATE 013 E ed - 12:15 DIPSTIC K URINE NEGATIV NEG complet LEUK 013 E ed ESTERAS 12:15 E URINE OCC 0 complet RBC 013 rbc/hpf ed 12:15 URINE OCC OCC complet SQUAMOU 013 #/hpf ed S CELLS 12:15 Phosphate SerPl-mCnc (08-06-2013 11:40) Phospha 3.6 2.4-4.9 complet te 013 mg/dL ed SerPl-m 11:40 Cnc Magnesium SerPl-mCnc (08-06-2013 11:40) Magnesi 2.6 1.4-2.2 complet um 013 mg/dL ed SerPl-m 11:40 Cnc BASIC METABOLIC PANEL (08-06-2013 11:40) Glucose 894 74-106 High complet 013 mg/dL alert ed Bld-mCn 11:40 c BUN 32 7-18 complet Bld-mCn 013 mg/dL ed c 11:40 Creat 1.6 0.8-1.3 complet SerPl-m 013 mg/dL ed Cnc 11:40 ESTIMAT 49 50-200 complet ED 013 ML/MIN ed CREATIN 11:40 INE CLEARAN CE GFR 45 Greater complet (ESTIMA 013 ML/MIN than ed AMANDA) 11:40 60 Sodium 159 136-145 High complet SerPl-s 013 mmoL/L alert ed Cnc 11:40 Potassi 4.4 3.5-5.1 complet um 013 mmoL/L ed SerPl-s 11:40 Cnc Chlorid 117 98-107 complet e 013 mmoL/L ed SerPl-s 11:40 Cnc CO2 28 21.0-32 complet SerPl-s 013 mmoL/L .0 ed Cnc 11:40 Calcium 10.1 8.5-10. complet 013 mg/dL 1 ed SerPl-m 11:40 Cnc VENOUS BLOOD GAS (08-06-2013 11:00) VENOUS 7.39 7.31-7. complet PH 013 MMOL/L 41 ed 11:00 VENOUS 43.0 41-51 complet PCO2 013 MMHG ed 11:00 VENOUS 38.0 35-40 complet PO2 013 MMHG ed 11:00 VENOUS 26.0 23-27 complet HCO3 013 MMOL/L ed 11:00 VENOUS 15.0 23-27 complet TCO2 013 MMOL/L ed 11:00 VENOUS 0.8 -2.4-2. complet MOHINDER 013 MMOL/L 3 ed 11:00 VENOUS 70 % 75-80 complet O2 SAT 013 ed 11:00 COMPREHENSIVE METABOLIC PANEL (08-06-2013 09:45) Glucose 929 74-106 High complet 013 mg/dL alert ed Bld-mCn 09:45 c BUN 31 7-18 complet Bld-mCn 013 mg/dL ed c 09:45 Creat 1.8 0.8-1.3 complet SerPl-m 013 mg/dL ed Cnc 09:45 ESTIMAT 46 50-200 complet ED 013 ML/MIN ed CREATIN 09:45 INE CLEARAN CE GFR 40 Greater complet (ESTIMA 013 ML/MIN than ed AMANDA) 09:45 60 Sodium 158 136-145 High complet SerPl-s 013 mmoL/L alert ed Cnc 09:45 Potassi 4.2 3.5-5.1 complet um 013 mmoL/L ed SerPl-s 09:45 Cnc Chlorid 10-25-2 115 98-107 complet e 013 mmoL/L ed SerPl-s 09:45 Cnc CO2 10-25-2 28 21.0-32 complet SerPl-s 013 mmoL/L .0 ed Cnc 09:45 Calcium 10-25-2 10.5 8.5-10. complet 013 mg/dL 1 ed SerPl-m 09:45 Cnc Prot 10-25-2 7.3 6.4-8.2 complet SerPl-m 013 gm/dL ed Cnc 09:45 Albumin 10-25-2 3.1 3.4-5.0 complet 013 gm/dL ed SerPl-m 09:45 Cnc Globuli 10-25-2 4.2 1.3-3.2 complet n 013 gm/dL ed Ser-mCn 09:45 c Albumin 10-25-2 0.7 UNK 1.1-1.8 complet /Glob 013 ed SerPl-m 09:45 Rto Bilirub 10-25-2 0.9 0.2-1.0 complet 013 mg/dL ed SerPl-m 09:45 Cnc AST 10-25-2 125 U/L 15-37 complet SerPl-c 013 ed Cnc 09:45 ALT 10-25-2 180 U/L 30-65 complet SerPl-c 013 ed Cnc 09:45 ALP 10-25-2 399 U/L 50-136 complet SerPl-c 013 ed Cnc 09:45 ACETONE, SERUM (08-06-2013 09:45) ACETONE 10-25-2 DETECTE NOT complet , SERUM 013 D DETECTD ed 09:45 CBC with AUTO DIFF (08-06-2013 09:45) WBC # 10-25-2 6.1 4.8-10. complet Bld 013 K/MM3 8 ed Auto 09:45 RBC # 10-25-2 4.80 4.6-6.2 complet Bld 013 M/mm3 ed Auto 09:45 Hgb 25-2 16.4 14.1-18 complet Bld-mCn 013 g/dL .0 ed c 09:45 Hct Fr 25-2 56.8 % 42.0-52 complet Bld 013 .0 ed 09:45 MCV RBC 1025-2 118.4 82.2-97 complet 013 fl .8 ed 09:45 MCH RBC 1025-2 34.1 pg 27-31.2 complet Qn 013 ed Auto 09:45 MEAN 10-25-2 28.8 31.8-35 complet CORPUSC 013 g/dl .4 ed ULAR 09:45 HGB CONC RDW RBC 10-25-2 15.9 % 11.5-17 complet Auto 013 .5 ed 09:45 Platele 10-25-2 98 142-424 complet t Bld 013 K/mm3 ed Ql 09:45 Manual MEAN 10-25-2 10.5 fl 7.4-10. complet PLATELE 013 4 ed T 09:45 VOLUME Granulo 10-25-2 80.4 % 37.0-80 complet cytes 013 .0 ed Fr Bld 09:45 Auto LYMPH % 10-25-2 15.9 % 10-50 complet 013 ed 09:45 Monocyt 10-25-2 3.0 % 1.7-9.3 complet es Fr 013 ed Bld 09:45 Auto Eosinop 10-25-2 0.6 % 0.1-12. complet hil Fr 013 0 ed Bld 09:45 Auto Basophi 10-25-2 0.1 % 0.1-2.0 complet ls Fr 013 ed Bld 09:45 Auto Granulo 10-25-2 4.9 1.3-8.0 complet cytes # 013 K/mm3 ed Bld 09:45 Auto Lymphoc 10-25-2 1.0 0.7-4.5 complet ytes Fr 013 K/mm3 ed Bld 09:45 Auto Monocyt 10-25-2 0.2 0.1-1.0 complet es # 013 K/mm3 ed Bld 09:45 Auto Eosinop 10-25-2 0.0 0.0-0.4 complet hil # 013 K/mm3 ed Bld 09:45 Auto Basophi 10-25-2 0.0 0-0.2 complet ls # 013 K/MM3 ed Bld 09:45 Auto Ammonia Plas-sCnc (08-06-2013 09:45) Ammonia 10-25-2 12 11-32 complet 013 umoL/L ed Plas-sC 09:45 nc GLYCOHEMOGLOBIN (A1c) (08-06-2013 09:45) HEMOGLO 10-25-2 11.6 % 0.0-7.0 complet BIN A1C 013 ed 09:45 Encounters Encounter Start End Date Code Location Performer Type Date Inpatient [facility] Rei Bass MD ([place]) 3 09:40 3 16:52 [facility]
--- OUTSIDE RECORDS SUMMARY | 2017-07-23 19:07 | External Medical Summary Rpt ---
Author Author , JAMEY [employer] Address Unknown Phone [email or web address] Care Team Providers Care Candle Pourer Name Role Phone Jerome Ovalle MD, Unavailable Unavailable Jerome Lomeli MD, Unavailable Unavailable Jose Lomeli MD Purpose Continuity of Care Document - 08-06-2013 through 2016 Problems Code Diagnosis DOS Provider Status [id number] Alcohol Rei abuse [facility] [id number] Diabetes Rei mellitus, [facility] onset, with hyperosmola r coma 571.2 Alcoholic Rei cirrhosis [facility] Allergies, Adverse Reactions, Alerts Type Allergy to [...] ve e 5M G/ Ml Vi a OH 10 0 No SC -2 EL 9- [...] nces retati t Range on Glucose BldC Glucomtr-[facility] (08-10-2013 16:22) Glucose 133 70-110 complet BldC 013 mg/dl ed Glucomt 16:22 r-mCnc Glucose BldC Glucomtr-[facility] (08-10-2013 10:59) Glucose 142 70-110 complet BldC 013 mg/dl ed Glucomt 10:59 r-[facility] COMPREHENSIVE METABOLIC PANEL (08-10-2013 06:40) Glucose 177 [...] K/MM3 ed Bld 06:40 Auto Glucose BldC Glucomtr-[facility] (08-10-2013 06:37) Glucose 169 70-110 complet BldC 013 mg/dl ed Glucomt 06:37 r-nc Glucose BldC Glucomtr-[facility] (08-09-2013 21:13) Glucose 75 70-110 complet BldC 013 mg/dl ed Glucomt 21:13 r-[facility] Glucose BldC Glucomtr-[facility] (08-09-2013 17:18) Glucose 104 70-110 complet BldC 013 mg/dl ed Glucomt 17:18 r-[facility] BASIC METABOLIC PANEL (08-09-2013 16:00) Glucose 79 [...] K/MM3 ed Bld 16:00 Auto Glucose BldC Glucomtr-[facility] (08-09-2013 12:49) Glucose 148 70-110 complet BldC 013 mg/dl ed Glucomt 12:49 r-[facility] Glucose dC Glucomtr-[facility] (08-09-2013 11:54) Glucose 156 70-110 complet BldC 013 mg/dl ed Glucomt 11:54 r-[facility] Glucose BldC Glucomtr-[facility] (08-09-2013 06:40) Glucose 263 70-110 complet BldC 013 mg/dl ed Glucomt 06:40 r-[facility] BASIC METABOLIC PANEL (08-09-2013 06:20) Glucose 266 [...] complet BldC 013 mg/dl ed Glucomt 21:07 r-[facility] BASIC METABOLIC PANEL (08-08-2013 17:52) Glucose 158 [...] mg/dL 1 ed SerPl-m 17:52 Cnc Glucose [facility] Glucomtr-[facility] (08-08-2013 16:08) Glucose 355 70-110 High complet BldC 013 mg/dl alert ed Glucomt 16:08 r-[facility] Glucose [facility] Glucomtr-[facility] (08-08-2013 11:14) Glucose 283 70-110 complet BldC 013 mg/dl ed Glucomt 11:14 r-[facility] Phosphate SerPl-[facility] (08-08-2013 08:30) Phospha 1.8 2.4-4.9 complet te 013 mg/dL ed SerPl-m 08:30 Cnc Magnesium SerP-[facility] (08-08-2013 08:30) Magnesi 1.6 1.4-2.2 complet um [...] complet 013 mg/dL 1 ed SerPl-m 08:30 [facility] LIVER PROFILE (08-08-2013 08:30) Prot [...] K/MM3 ed Bld 08:30 Auto Glucose BldC Glucomtr-[facility] (08-08-2013 06:27) Glucose 08-08- 273 70-110 complet BldC 013 mg/dl ed Glucomt 06:27 r-[facility] Glucose BldC Glucomtr-[facility] (08-07-2013 20:43) Glucose 08-07-2 196 70-110 complet BldC 013 mg/dl ed Glucomt 20:43 r-[facility] BASIC METABOLIC PANEL (08-07-2013 17:55) Glucose 08-07- [...] 013 mg/dL ed SerPl-m 17:55 Cnc Magnesium SerPl-[facility] (08-07-2013 17:55) Magnesi 1.8 1.4-2.2 complet um 013 mg/dL ed SerPl-m 17:55 Cnc ACETONE, SERUM (08-07-2013 17:55) ACETONE NONE NOT complet , SERUM 013 DETECTE DETECTD ed 17:55 D Glucose BldC Glucomtr-[facility] (08-07-2013 16:40) Glucose 162 70-110 complet BldC 013 mg/dl ed Glucomt 16:40 r-[facility] LIVER PROFILE (08-07-2013 15:45) Prot 5.5 6.4-8.2 [...] complet BldC 013 mg/dl ed Glucomt 12:04 r-[facility] Glucose BldC Glucomtr-nc (08-07-2013 06:55) Glucose 78 70-110 complet BldC 013 mg/dl ed Glucomt 06:55 r-[facility] Glucose BldC Glucomtr-nc (08-07-2013 06:02) Glucose 123 70-110 complet BldC 013 mg/dl ed Glucomt 06:02 r-[facility] BASIC METABOLIC PANEL (08-07-2013 06:00) Glucose 126 [...] 013 mg/dL ed SerPl-m 06:00 Cnc Magnesium SerPl-[facility] (08-07-2013 06:00) Magnesi 1.9 1.4-2.2 complet um 013 mg/dL ed SerPl-m 06:00 Cnc ACETONE, SERUM (08-07-2013 06:00) ACETONE NONE NOT complet , SERUM 013 DETECTE DETECTD ed 06:00 D Glucose BldC Glucomtr-[facility] (08-07-2013 04:30) Glucose 110 70-110 complet BldC 013 mg/dl ed Glucomt 04:30 r-[facility] Glucose BldC Glucomtr-[facility] (08-07-2013 03:02) Glucose 181 70-110 complet BldC 013 mg/dl ed Glucomt 03:02 r-[facility] Glucose BldC Glucomtr-[facility] (08-07-2013 01:01) Glucose 172 70-110 complet BldC 013 mg/dl ed Glucomt 01:01 r-[facility] Glucose BldC Glucomtr-[facility] (08-07-2013 00:05) Glucose 206 70-110 complet BldC 013 mg/dl ed Glucomt 00:05 r-[facility] Glucose BldC Glucomtr-[facility] (08-06-2013 22:07) Glucose 207 70-110 complet BldC 013 mg/dl ed Glucomt 22:07 r-[facility] BASIC METABOLIC PANEL (08-06-2013 22:00) Glucose 236 [...] mg/dL 1 ed SerPl-m 22:00 Cnc Phosphate SerPl-[facility] (08-06-2013 22:00) Phospha 1.8 2.4-4.9 complet te 013 mg/dL ed SerPl-m 22:00 Cnc Magnesium SerPl-[facility] (08-06-2013 22:00) Magnesi 2.1 1.4-2.2 complet um 013 mg/dL ed SerPl-m 22:00 [facility] Glucose [facility] Glucomtr-[facility] (08-06-2013 21:36) Glucose 272 70-110 complet BldC 013 mg/dl ed [facility] (08-06-2013 20:14) Glucose 257 70-110 complet BldC 013 mg/dl ed [facility] BASIC [facility]ABOLIC PANEL (08-06-2013 19:23) Glucose [...] 013 D DETECTD ed 15:00 Glucose BldC Glucomtr-[facility] (08-06-2013 14:04) Glucose Greater 70-110 High complet [...] Date Code Location Performer Type Date Inpatient [facility] Rei aBss MD ([place]) 3 09:40 3 16:52 [facility]
--- OUTSIDE RECORDS SUMMARY | 2017-07-23 19:08 | External Medical Summary Rpt ---
Demographics Preferred Language Yoruba Marital Status Unknown Jain Affiliation Unknown Race Unknown Ethnic Group Unknown Author Author SANTOSH Address Unknown Phone Immunization No patient found.
--- OUTSIDE RECORDS SUMMARY | 2017-07-23 19:08 | External Medical Summary Rpt ---
Author Author JAMEY Minaya, [employer] Address Unknown Phone Unavailable
--- OUTSIDE RECORDS SUMMARY | 2017-07-23 19:08 | External Medical Summary Rpt ---
Demographics Preferred Language Pashto Marital Status Unknown Druze Affiliation Unknown Race Unknown Ethnic Group Unknown Author Author SANTOSH Address Unknown Phone Immunization No patient found.
== END 2017-07-12 17:26 | disposition home or self-care (01) ==
LOC: ER 15:08
PROC: 0HQFXZZ Repair Right Hand Skin, External Approach (ICD-10-PCS; principal; 2017-07-12)
DX: S62.322B Displaced fracture of shaft of third metacarpal bone, right hand, initial encounter for open fracture (principal); W23.1XXA Caught, crushed, jammed, or pinched between stationary objects, initial encounter; Y92.019 Unspecified place in single-family (private) house as the place of occurrence of the external cause; F17.210 Nicotine dependence, cigarettes, uncomplicated; Z23 Encounter for immunization